=== PATIENT | male | born 1945 | race Caucasian/White ===

== ENCOUNTER 2023-12-21 13:46 | Outpatient (CLI) | payer OTHER | END 2023-12-21 13:53 | disposition home or self-care (01) | LOC: RAD 13:46 | PROVIDERS: ATTEND Physical Medicine & Rehabilitation | DX: M17.11 Unilateral primary osteoarthritis, right knee (principal); M25.561 Pain in right knee ==

== ENCOUNTER 2025-02-28 11:31 | Outpatient (CLI) | payer OTHER | END 2025-02-28 11:32 | disposition home or self-care (01) | LOC: NUCLEAR 11:31 | PROVIDERS: ATTEND Physical Medicine & Rehabilitation | DX: M81.0 Age-related osteoporosis without current pathological fracture (principal) ==